=== PATIENT | female | born 2000 | race Caucasian/White ===

== ENCOUNTER 2022-03-03 13:40 | Observation (INO) | payer MEDICAID ==
[~2022-03-03] VITALS: Ht 154.9 cm; Wt 86.2 kg
[2022-03-03] MEDS ORDERED: LACTATED RINGERS 500 ML IV SCH ×2 (15:00→15:02)
[2022-03-03] MEDS ORDERED: LACTATED RINGERS 1,000 ML IV SCH (15:00)
[2022-03-03] MEDS ORDERED: ONDANSETRON HCL 4MG/2ML INJ IV PRN (15:00)
[2022-03-03] MEDS ORDERED: ACETAMINOPHEN 500MG TABLET PO SCH (15:30)
== END 2022-03-03 16:25 | disposition home or self-care (01) ==
LOC: 8 EST LDRP 13:40
PROVIDERS: ADMIT Specialist; ATTEND Specialist
DX: O62.9 Abnormality of forces of labor, unspecified (principal); O21.2 Late vomiting of pregnancy; O26.893 Other specified pregnancy related conditions, third trimester; R51.9 Headache, unspecified; R19.7 Diarrhea, unspecified; Z3A.39 39 weeks gestation of pregnancy
CPT/HCPCS: 59025; 96360; G0378; 99281